=== PATIENT | male | born 1970 | race Caucasian/White ===

== ENCOUNTER 2017-09-15 19:47 | Emergency (ER) | payer SELFPAY ==
[~2017-09-15] VITALS: Ht 165.1 cm; Wt 86.2 kg
[~2017-09-15 19:47] MED LIST: AUGMENTIN 875 M1 TAB PO; CEPHALEXIN500 M1 PO; NKHM; SEPTDS PO; TRAMADOL HCL50 MG PO; VICODIN 500 MG-1 TAB PO
[2017-09-15] MEDS ORDERED: BACTROBAN CREAM15 GM T (20:24)
[2017-09-15] MEDS ORDERED: SEPTDS PO (20:24)
== END 2017-09-15 20:44 | disposition home or self-care (01) ==
LOC: ED 19:47 → EDBD 19:48 → ED 19:48
DX: L08.89 Other specified local infections of the skin and subcutaneous tissue (principal); L02.416 Cutaneous abscess of left lower limb; L02.415 Cutaneous abscess of right lower limb; F10.10 Alcohol abuse, uncomplicated